=== PATIENT | female | born 2005 | race Caucasian/White ===

== ENCOUNTER 2024-09-09 08:19 | Inpatient (IN) | payer MEDICAID, SELFPAY ==
[2024-09-09] VITALS (16 sets, daily range): BP systolic 120–170; BP diastolic 63–92; PULSE 76–123; RESP 16; TEMP 36.4–36.6; O2SAT 98–99
[2024-09-09 09:00] LABS: HCT 42.4 % (36.0-46.0); HGB 13.5 g/dL (11.2-15.7); MCH 27.1 pg (27.0-33.0); MCHC 31.8 % (32.0-36.0); MCV 85 fL (80-95); MPV 11.3 fL (8.0-11.0); Platelet Count 262 10^3/uL (130-400); RBC 4.98 10^6/uL (3.93-5.22); RDW 13.4 % (11.7-14.6); RDW-SD 41.3 fL; WBC 10.38 10^3/uL (4.4-10.8)
--- NOTE | 2024-09-09 09:15 | W.PM.OBHPL1 ---
Date of service: 09/09/24 Time of Service: 10:30 Assessment and Plan Assessment and plan (1) : Status: Acute Assessment and plan: 19yo at 38+0, presenting in active labor. Membranes intact. Reassuring -maternal exam. -Admit to L+D for active labor -Intake labs: CBC, T+S -Cervical checks q2H or more frequently as needed -anesthesia: Epidural PRN. Patient plans on delivering without epidural -ROM PRN -Continue home labetalol 100mg PO BID while in labor, for GHTN. Will monitor pressures and discontinue following delivery if pressures remain WNL (2) Gestational hypertension: Status: Acute OB-HPI Labor/Delivery History of Present Illness Reason for Visit: Labor Chief Complaint: Uterine Contractions. Comments: 19yo at 38+0 who presented to L+D in active labor. Per patient, started to experience more pelvic pressure yesterday and intermittent contractions, then felt contractions happening more regularly at 1am overnight last night. Due to increased frequency and consistency of contractions called provider at 6am then came to L+D this AM. Most recent cervical check outpatient, dilated to 3cm 09/04/2024 SVE on intake: 6cm/90/-1, bulging bag. TOCO: CTX q3, FHT: Category 1 strip. History of Present Narrative: : Complicated by gestational hypertension, currently treating with labetalol BID. Otherwise uncomplicated . intake labs: Blood typ eA positive, Hep B neg, HIV neg, RPR NR. RI. Most recent preE baseline labs: 07/27/2024, PLT, Cr, LFTs WNL. Hospital intake: Hgb: 13.5 today 09/09/24 Review of Systems All systems reviewed & are unremarkable except as noted in HPI and below PFSH All Active Problems (Updated 09/09/24 @ 10:29 by Flaquita Vila MD) Gestational hypertension (Acute) (Acute) 19yo presenting in active labor at 38+0. complicated by GHTN well controlled on labetalol BID. -admit to L+D for labor - Social History Smoking/Tobacco Use Status: Never Smoking risk assessment performed?: Yes Alcohol Intake: never Substance use type: does not use Housing: house Do you feel safe at home: Yes Do you feel safe in your relationship?: Yes History History 2 Para 1 Hx # Term Pregnancies Multiple births Hx # Pregnancies Ectopic pregnancies AB induced Hx Number of Living Children AB spontaneous Meds Allergies and Home Medications Home Medications ?Medication ?Instructions ?Recorded ?Confirmed ?Type aspirin 81 mg chewable tablet 81 mg PO DAILY 09/09/24 09/09/24 History (Aspirin Childrens) labetalol 100 mg tablet 100 mg PO BID 09/09/24 09/09/24 History [id number]-eof-Pn-FA 1 mg 1 tab PO DAILY 09/09/24 09/09/24 History tablet Exam Physical Exam Vital signs: Temp Pulse Resp BP Pulse Ox 36.4 C L 96 H 16 132/85 98 09/09/24 08:42 09/09/24 08:42 09/09/24 08:42 09/09/24 08:42 09/09/24 08:42 Vital Signs Reviewed: Yes Narrative: Gen: Alert, oriented. Painful with CTX, no acute distress CV: Extremities WWP, peripheral pulses intact Pulm: Regular respiratory effort Abd: Gravid Detailed Labor and Delivery Exam Dilation: 6 Effacement (%): 90 station: -1 Cervix position: anterior Consistency: soft Garza Score: Cervical Points Exam 0 1 2 3 Dilation Closed 1-2cm 3-4 cm 5-6cm Effacement 0-30% 40-50% 60-70% 80% Consistency Firm Medium Soft Station -3 -2 -1,0 +1,+2 Position Posterior Mid Anterior Amniotic Membrane Status: Intact Contraction Frequency(min): Reyes every 3 minutes Contraction Intensity: Strong Fetus A Assessment Note: Cat 1 tracing Results Results Group Beta Strep: Negative Blood Type: A+ Rubella Status: Immune Varicella Immunity: Not Tested Abnormal Lab Findings: Abnormal Labs 09/09/24 08:50 MCHC 31.8 L MPV 11.3 H Risk Assessment Risks Reviewed Risks Reviewed Upon Admission: Yes
[2024-09-09] MEDS: Oxytocin 10 UNITS/ML VIAL IM (09:33)
--- NOTE | 2024-09-09 10:31 | W.OBDELIVERY ---
Date of service: 09/09/24 Time of Service: 10:31 OB Labor/ Delivery Information Baby A Delivery Delivery Method: Spontaneaous Presentation: Cephalic Cephalic Position: Vertex Vertex Position: Left Occipital Anterior Cord Description-Baby A: 3 Vessels Cord Description Comment: Intact, 3 vessel cord. Amniotic Fluid: Meconium (Thick meconium. ) Estimated Blood Loss: 150cc Delivery Outcome: Liveborn Transferred: Remains with Mother Providers Doctor: Flaquita Vila Nurse: Leanna Haynes Nurse: Shawna Kern Other: Apollo Hernandez MD Labor/Delivery Information Number of Babies in Womb: 1 Steroids Given: None Reason Steroids Not Administered: N/A Group Beta Strep: Negative Antibiotics Administered: No Rubella Status: Immune Blood Type: A+ Varicella Immunity: Not Tested Maternal Complications: None Shoulder Dystocia: No Note: Second stage: Providers called to room -- patient had come to standing position and was having significant pelvic pressure, need to push. Evaluation of patient in standing/squatting position revealed patient had spontaneously ruptured membranes (thick meconium stained fluid) and was complete, . After pushing in squatting position for 2 minutes, head delivered, direct OA. No nuchal cord. Shoulders delivered without difficulty. Vigorous suctioned, stimulated. Mother was helped back to bed and up to chest for [id number]. Third stage: Delayed cord clamping ~3 minutes following delivery. Pitocin IM x 1 administered. Placenta delivered 9 minutes following delivery of with fundal massage and gentle cord traction. Placenta intact, peripheral cord insertion with 3 vessel cord. Vaginal exam performed, revealing no cervical lacerations, no perineal lacerations. 1st degree L renetta-urethral tear noted, with good hemostasis. No need for repair/sutures. Baby 3.175kg, APGARS 8/9. Mom and baby recovering well. Stages of Labor Onset of Labor Date: 09/09/24 Onset of Labor Time: 02:00 Complete Dilatation Date: 09/09/24 Complete Dilatation Time: 09:23 Labor - Stage 1 Duration: 7 hours and 23 minutes ROM Baby A: 09/09/24 ROM Baby A: 09:23 ROM Total Time- Baby A: [id number] Infant Delivery Date-Baby A: 09/09/24 Infant Delivery Time-Baby A: 09:25 Labor Stage 2 Duration: 2 minutes Placenta Delivery Date-Baby A: 09/09/24 Placenta Delivery Time-Baby A: 09:34 Labor-Stage 3 Duration: 9 minutes Total Length of Labor-Baby A: 7 hours and 25 minutes Placenta Cultured: No Placenta Status: Delivered Baby A Gender: Male Gestational Status: Early Term (37-38.6 wks) Gestational Age in Weeks/Days: 38 Weeks and 1 Days Score-1 Minute Interval(Baby A) Heart Rate-1 minute: 100 BPM or Greater Respiratory Effort- 1 minute: Slow Respiration/Weak Cry Muscle Tone-1 minute: Active Movement Reflex Response-1 minute: Prompt Response Color-1 minute: Bluish Hands or Feet Total Score-1 minute: 8 Score-5 Minute Interval(Baby A) Heart Rate- 5 minute: 100 BPM or Greater Respiratory Effort-5 minute: Spontaneous/Strong Cry Muscle Tone-5 minute: Active Movement Reflex Response-5 minute: Prompt Response Color-5 minute: Bluish Hands or Feet Total Score- 5 minute: 9
[2024-09-10 07:35] VITALS: BP 142/89; PULSE 101; RESP 16; TEMP 36.6; O2SAT 100
[2024-09-10 12:15] VITALS: BP 132/78; PULSE 123
--- NOTE | 2024-09-10 13:13 | DSE_ITS ---
Date of service: 09/10/24 Time of Service: 13:13 DS: Diagnosis Discharge Diagnosis (1) : Status: Acute Asessment and Plan: 19yo now , PPD2 following . Recovering well following delivery, ambulating without difficulty. Pain well managed without analgesics. Appropriate for discharge to home when baby appropriate for discharge. -pain management at home: acetaminophen, ibuprofen PRN -Breast pump provided -contraception: Undecided. Will discuss during clinic follow-up. -follow up with PCP ([facility]) 6 weeks or sooner PRN (2) Gestational hypertension: Status: Acute Asessment and Plan: Pressures have been appropriate since delivery. Ok to discontinue home labetalol. Discharge Plan Disposition Patient Disposition: Home Condition: Good Discharge Details Reason For Visit: Labor Admit Date/Time: 09/09/24 08:19 Admit Provider: Apollo Contreras Attending Provider: Apollo Contreras Primary Care Provider: Loida Balderrama Home Meds and New Rx's Prescriptions: Continued [id number]-[id number]-FA 1 mg tablet 1 tab PO DAILY Discontinued labetalol 100 mg tablet 100 mg PO BID aspirin [Aspirin Childrens] 81 mg tablet,chewable 81 mg PO DAILY Discharge Instructions Stand Alone Forms: BC Instructions, BC Post Vaginal Deliver Activity:: Activity as Tolerated Equipment/Supplies:: No Equipment Needed Diet:: As Tolerated Discharge Orders Discharge Orders: Discharge Order (Routine); Ordered 09/10/24 Ordered By: Flaquita Vila OB:DS Summary Summary Vaginal Delivery Method: Spontaneaous Episiotomy Description: None Laceration Description: None Laceration Extension: N/A Procedures: 19yo now who presented to L+D 09/09 in spontaneous labor. complicated only by GHTN, well controlled. GBS neg, Rh positive. Uncomplicated 09/09/2024, no complications. Mom and baby recovered well and were found appropriate for discharge >24h following delivery. Subjective: Patient feeling well today. Ambulating without difficulty. Pain well controlled. Hoping to go home this evening if possible. going well, latching to 10-20 minutes each breast. Mom has breastpump and was able to meet with . Contraception Discussed Contraception Discussed: No, [place] Gender-Baby A: Male weight: 3180 g Status at Discharge Functional status at discharge: independent ambulation Overall status at discharge: patient is progressing back to baseline Mental Status: mental status grossly normal Speech and Movement: speech and movement normal Mood: congruent mood Affect: normal affect Time Spent with Patient providing and/or coordinating discharge services: Greater than 30 minutes Quality:SDOH Health Related Social Needs: No Data to Display Hospital Course 19yo now who presented to L+D 09/09 in spontaneous labor. complicated only by GHTN, well controlled. GBS neg, Rh positive. Uncomplicated 09/09/2024, no complications. Mom and baby recovered well and were found appropriate for discharge >24h following delivery. Subjective: Patient feeling well today. Ambulating without difficulty. Pain well controlled. Hoping to go home this evening if possible. going well, latching to 10-20 minutes each breast. Mom has breastpump and was able to meet with . Exam Physical Exam Vital signs: Temp Pulse Resp BP Pulse Ox 36.6 C 101 H 16 142/89 H 100 09/10/24 07:35 09/10/24 07:35 09/10/24 07:35 09/10/24 07:35 09/10/24 07:35 Vital Signs Reviewed: Yes Constitutional Constitutional: no acute distress HEENT Exam HEENT Exam: Normal Respiratory Exam Respiratory Exam: Normal Cardiovascular Exam Cardiovascular Exam: Normal Fundal Exam Comment: Soft, fundus firm and below umbilicus. Mild appropriate tenderness on fundal check. Extremities Exam Extremity Exam: Normal Comment: WWP, no calf tenderness or swelling. PFSH All Active Problems (Updated 09/09/24 @ 10:29 by Flaquita Vila MD) Gestational hypertension (Acute) (Acute) 19yo presenting in active labor at 38+0. complicated by GHTN well controlled on labetalol BID. -admit to L+D for labor - Social History Smoking/Tobacco Use Status: Never Smoking risk assessment performed?: Yes Alcohol Intake: never Substance use type: does not use Housing: house Do you feel safe at home: Yes Do you feel safe in your relationship?: Yes History History 2 Para 1 Hx # Term Pregnancies Multiple births Hx # Pregnancies Ectopic pregnancies AB induced Hx Number of Living Children AB spontaneous DS: Data Vitals/I&O Vitals and I&O: Vital Signs Temperature 36.6 C 09/10/24 07:35 Temperature 36.4 C 09/09/24 08:35 Temperature Source Oral 09/10/24 07:35 Pulse 101 H 09/10/24 07:35 Pulse 96 09/09/24 08:35 Pulse Rhythm Regular 09/10/24 07:35 Respiratory Rate 16 09/10/24 07:35 Blood Pressure 142/89 H 09/10/24 07:35 Blood Pressure 132/85 09/09/24 08:35 Blood Pressure Mean 106 09/10/24 07:35 Pulse Oximetry 100 09/10/24 07:35 Oxygen Delivery Method Room Air 09/09/24 08:42 Oxygen Flow Rate 0 09/09/24 08:42 Pain Level 8 09/09/24 08:42 Intake & Output 09/09/24 09/10/24 09/10/24 23:59 11:59 23:59 Output Total 1300 / 1550 Balance -1300 / -1550 Output: Urine 1300 / 1550 Other: Urine Color Pale Yellow
[2024-09-10 20:00] VITALS: BP 139/82; PULSE 107; RESP 18; TEMP 37.1
[2024-09-11 09:38] VITALS: BP 125/82; PULSE 98; RESP 12; TEMP 37.1
== END 2024-09-11 09:15 | disposition home or self-care (01) | DRG 807 ==
LOC: BCD 08:36 → OBS 08:36
PROVIDERS: Admitting Provider Family Medicine; PCP Family Medicine; Visit Provider Family Medicine
DX: O13.4 Gestational [pregnancy-induced] hypertension without significant proteinuria, complicating childbirth (principal); Z37.0 Single live birth; Z3A.38 38 weeks gestation of pregnancy; O77.0 Labor and delivery complicated by meconium in amniotic fluid; O71.82 Other specified trauma to perineum and vulva
CPT/HCPCS: 00123; 85027; 86850; 86900; 86901; J2590